=== PATIENT | female | born 1980 | race Caucasian/White ===

== ENCOUNTER 2021-08-03 12:00 | Inpatient (IN) | payer SELFPAY ==
[2021-08-03 12:50] VITALS: BMI 32.8
[2021-08-03] MEDS: nicotine 21 mg Patch 1 PATCH TRANSDERMA (13:07)
[2021-08-03 13:52] VITALS: BP 142/87; PULSE 68; RESP 17; TEMP 36.3; O2SAT 94
[2021-08-03 22:00] VITALS: BP 142/84; PULSE 86; RESP 18; O2SAT 96
[2021-08-03] MEDS: trazodone 50 mg Tablet PO (22:32)
[2021-08-04 06:00] VITALS: BP 163/105; PULSE 86; RESP 17; O2SAT 95
--- NOTE | 2021-08-04 06:40 | PC.NURSE ---
charge nurse notified of beth/sydnee/james
--- NOTE | 2021-08-04 10:41 | NPU.GN ---
[facility] Topic:Depression/ Anxiety [place] General Mood of Group: Francesca did not attend group this morning she wanted to sleep.
--- NOTE | 2021-08-04 12:19 | P.NPUHP_ITS ---
Providers/Chief Complaint Admitting Physician: Cecil Coto MD HPI NPU History of Present Illness Francesca Bravo is a 40 year old female who was transferred from a hospital near [place] with the following report: 40-year-old female presents with a wound on her right hip. She said the triage personnel that she was trying to hurt herself. Apparently she came from a psychiatric outpatient center where she could not be seen until next week so she came to the ER. She was very evasive with me stating that she really was not going to hurt herself but she was going to go to her [facility] to be by herself all weekend and make no eye contact was very nervous and fidgety. She denies problems with the law. She denies drugs. She states that this wound on her right thigh which appears to be a scar from a burn that she had 2 or 3 weeks was not self-inflicted and that she felt like I would feel she was trying to hurt herself. She delayed seeking care for this. She is a smoker half pack per day denies alcohol drugs and has not been COVID vaccinated. She denies any previous psychiatric care and has no known allergies. Nurse wrote that she had been at [facility] and was planning to winterize it. Her son was supposed to be coming. The nurse had spoken with the son who stated that his mother had been acting different lately and that she was looking into placement into a drug/alcohol rehab. When asked how long she had been using he stated that he was not sure how long it had been and that she had been clean for a week and relapsed over the last few days. He stated that she had current stressors including her father's diagnosis with Alzheimer's and her mother taking over the majority of care for him. She was supposed to help her mother but knows that she needs to get help first. She had tried to check into [facility] earlier that day but told that she needed to go to the emergency room first. She was admitted to the neuropsychiatry unit for definitive treatment of these issues. She has been complaining that she has not been seen by the psychiatrist. I talked to her at 1230 and she was fairly upset because she did not feel that she needed to be here. She was a little difficult to interview because she would breakdown frequently and cry because she said that she did not need to be here and would not get any better here. She said that she went to the emergency room because of the sore on her hip. She said that she had not been taking care of it properly as she should have. She had tried to get into an outpatient treatment program and was told that she could not be taken immediately and if she had urgent issues she needed to go to the emergency room and tell them that she was thinking about hurting herself. She told them in the emergency room that she was thinking about hurting herself but did not say that she was thinking about killing herself. Her son said that she had been acting differently lately and had been looking into a drug/rehab program. He said that she has been clean for a week but then had a relapse in the last few days. The patient denies any prior psychiatric treatment other than she tried Zoloft 1 time but it made her more anxious and jittery. She did not want to try different antidepressant. She says that she just needs therapy. She denies any prior substance abuse including alcohol methamphetamine and marijuana since she was 13 years old. She says that she has been sleeping and eating well. She generally sleeps off cycle from 12 AM to 12 PM. 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 She feels that she gets adequate sleep. She is stressed out because her father has Alzheimer's disease and her mother is trying to take care of him. They are moving into an assisted living facility in [place]. The patient lives in [place]. She has been here trying to get the [employer] ready to sell. She has difficulty selling it because that is where her grandmother . Meds NPU Home Medications Medication Instructions Recorded Confirmed Last Taken Type No Known Home Medications 08/04/21 08/04/21 Unknown History Allergies Allergy/AdvReac Type Severity Reaction Status Date / Time No Known Allergies Allergy Verified 08/04/21 04:17 Mental Status Exam MSE Comments: This is an overweight 40-year-old female who appears about the stated age. She is dressed in hospital scrubs and is in no acute distress. psychomotor activity is normal to mildly elevated. Speech is at a regular rate and rhythm, normal volume, good articulation, not pressured. Alert, oriented X3 Attention and concentration appears to be normal. Memory is intact Mood is depressed. Affect is moderately dysphoric. She broke into tears several times. Thought process is logical and goal-directed. Thought content: Denies auditory and visual hallucinations. No delusions or paranoia are noted. No current suicidal ideation, and no homicidal ideation. Fund of knowledge is within normal limits. Insight and judgment appear to be fair. Impulse control is fair. Vitals/I&O/Wt Last Vital Signs Temp 97.4 F L 08/03/21 13:52 Pulse 86 08/04/21 06:00 Resp 17 08/04/21 06:00 BP 163/105 08/04/21 06:00 Pulse Ox 95 08/04/21 06:00 Weight last 48 hrs Weight 83.915 kg A&P Assessment and plan (1) Depression: Status: Acute Qualifiers: Active/Remission status: currently active Depression Type: major depressive disorder Major depression episode severity: moderate Major depression recurrence: recurrent Qualified Code(s): F33.1 - Major depressive disorder, recurrent, moderate (2) Suicidal ideation: Status: Acute Additional A&P Information Is a 40-year-old female who went to the emergency room for a wound on her hip but told them that she was also thinking about hurting herself. She denies prior psychiatric treatment. Plan: 1. Continue outpatient medications. she declined an antidepressant. 2. Continue every 15 minute checks for safety. 3. Encourage individual, group and milieu therapies. 4. Encourage sober living treatment after discharge at the highest level of care to which she is willing to commit. 5. We will monitor for safety for herself in the community prior to discharge. Involuntary Hold Information 96 Hour Hold: 96 Hour Involuntary Admission: Yes 96 Hour Hold Ending Date: 08/07/21 96 Hour Hold Ending Time: 00:01 Attestations NPU Medical Necessity Statement*: Inpatient hospitalization is medically necessary and the clinically appropriate intervention at this time. We will initiate medications and make changes as indicated. She will be in the hospital for over 2 midnights. Likely length of stay 4-6 days Coding Level of Care Code Acute Pocket Marker for Vivek Mendoza Diagnoses Depression F33.1 Active/Remission status: currently active Depression Type: major depressive disorder Major depression episode severity: moderate Major depression recurrence: recurrent Suicidal ideation R45.855
[2021-08-04] MEDS: nicotine 21 mg Patch 1 PATCH TRANSDERMA (12:56)
[2021-08-04] MEDS: hyDROXYzine 25 mg Capsule 50 MG PO ×2 (13:30→23:13)
[2021-08-04] MEDS: lisinopril 10 mg Tablet PO (13:31)
[2021-08-04 14:00] VITALS: BP 154/94; PULSE 86; RESP 17; TEMP 37; O2SAT 98
[2021-08-04 22:00] VITALS: BP 129/79; PULSE 86; RESP 16; TEMP 36.7; O2SAT 95
[2021-08-05 06:00] VITALS: BP 129/92; PULSE 105; RESP 15; O2SAT 98
[2021-08-05] MEDS: lisinopril 10 mg Tablet PO ×2 (09:19→19:41)
[2021-08-05] MEDS: nicotine 21 mg Patch 1 PATCH TRANSDERMA (09:19)
--- NOTE | 2021-08-05 11:03 | NPU.GN ---
[facility] Topic:Group Topic:Ashley Word Search General Mood of Group: Francesca did attend and participate in group today. She was social and hygiene was ok.
[2021-08-05] MEDS: eucerin cream 113 gm Jar 1 APPLIC TOPICAL (13:21)
--- NOTE | 2021-08-05 13:57 | W.PM.NPUPNS ---
Subjective NPU Subjective: Interval history: He apologized for her behavior yesterday. She said that she did want to get help. She does believe that she has anxiety and depression. She thinks that she took Zoloft in the past and it caused her to be jittery. She is going to find out from her pharmacy which medication that was. She is also going to call her daughter who sees Dr. Anne in [place] and see if she has been on an antidepressant that has helped her. She says that her daughter had problems with Xanax in the past. She thinks that her mother has been diagnosed with depression and bipolar 2 disorder. We went over the symptoms of anxiety. She does feel that she has thoughts going fast all the time and her brain is constantly multitasking. She has difficulty with concentration. She is irritable. He has difficulty with sleep. She would not want to take a sleeping pill because she sees what they do to people. We talked about the treatment of anxiety and depression. Mental Status Exam MSE Comments: This is an overweight 40-year-old female who appears about the stated age. She is dressed in hospital scrubs and is in no acute distress. psychomotor activity is normal. Speech is at a regular rate and rhythm, normal volume, good articulation, not pressured. Alert, oriented X3 Attention and concentration appears to be normal. Memory is intact Mood is depressed. Affect is only dysphoric. Thought process is logical and goal-directed. Thought content: Denies auditory and visual hallucinations. No delusions or paranoia are noted. No current suicidal ideation, and no homicidal ideation. Fund of knowledge is within normal limits. Insight and judgment appear to be good. Impulse control is fair. Cognition: Patient Appearance: Appropriate Patient Orientation (long list): Person, Place and Time Comprehension Ability: No Impairment Hallucination Type: None Thought Process: Circumstantial Affect: Affect Description: [place] and Calm Behavior: Patient Behavior: Cooperative and Negative Speech Pattern: Appropriate and Clear Vitals/I&O/Wt Last Vital Signs Temp 98.1 F 08/04/21 22:00 Pulse 105 H 08/05/21 06:00 Resp 15 08/05/21 06:00 BP 129/92 08/05/21 06:00 Pulse Ox 98 08/05/21 06:00 A&P Assessment and plan (1) Depression: Status: Acute Qualifiers: Depression Type: major depressive disorder Major depression recurrence: recurrent Active/Remission status: currently active Major depression episode severity: moderate Qualified Code(s): F33.1 - Major depressive disorder, recurrent, moderate (2) Suicidal ideation: Status: Acute Additional A&P Information Is a 40-year-old female who went to the emergency room for a wound on her hip but told them that she was also thinking about hurting herself. She denies prior psychiatric treatment. Plan: 1. Continue outpatient medications. She will make some contacts and see if she has a recommendation for an antidepressant 2. Continue every 15 minute checks for safety. 3. Encourage individual, group and milieu therapies. 4. Encourage sober living treatment after discharge at the highest level of care to which she is willing to commit. 5. We will monitor for safety for herself in the community prior to discharge. Involuntary Hold Information 96 Hour Hold: 96 Hour Involuntary Admission: Yes 96 Hour Hold Ending Date: 08/07/21 96 Hour Hold Ending Time: 00:01 Attestations NPU Medical Necessity Statement*: Inpatient hospitalization is medically necessary and the clinically appropriate intervention at this time. We will initiate medications and make changes as indicated. Coding Level of Care Code Acute Tilesetter for Vivek Mendoza Diagnoses Depression F33.1 Depression Type: major depressive disorder Major depression recurrence: recurrent Active/Remission status: currently active Major depression episode severity: moderate Suicidal ideation R45.859
[2021-08-05 14:00] VITALS: BP 147/88; PULSE 68; RESP 16; TEMP 36.9; O2SAT 98
[2021-08-05] MEDS: nicotine 2 mg Gum BUCCAL ×3 (14:46→19:17)
[2021-08-05] MEDS: acetaminophen 325 mg Tablet 650 MG PO (18:51)
[2021-08-05] MEDS: hyDROXYzine 25 mg Capsule 50 MG PO (19:41)
[2021-08-05 20:45] VITALS: BP 158/100; PULSE 88; RESP 18; TEMP 36.5; O2SAT 98
[2021-08-06 06:00] VITALS: BP 126/81; PULSE 85; RESP 16; TEMP 36.7; O2SAT 97
[2021-08-06] MEDS: lisinopril 10 mg Tablet PO (09:46)
[2021-08-06] MEDS: nicotine 2 mg Gum BUCCAL (09:46)
[2021-08-06] MEDS: sertraline 50 mg Tablet PO (09:46)
--- NOTE | 2021-08-06 10:30 | NPU.GN ---
[facility] Topic:Group Topic:Crisis Plan, Triggers, Coping Mechanisms. General Mood of Group: Francesca did not attend group today. She was feeling sick this morning.
[2021-08-06] MEDS: acetaminophen 325 mg Tablet 650 MG PO (10:51)
[2021-08-06] MEDS: OLANZapine 5 mg ODT PO ×2 (11:20→20:52)
[2021-08-06] MEDS: hyDROXYzine 25 mg Capsule 50 MG PO ×2 (11:20→20:52)
--- NOTE | 2021-08-06 13:49 | P.NPUPN_ITS ---
Subjective NPU Subjective: Interval history: She is having a difficult day today. She attributes that to having her period starting. She usually has 1 or 2 bad days. She can deal with it better at home. She had some scrubs with blood on them that were in the corner and she has to have housekeeping cleaning up the medicine she cannot do it herself. She took some Zyprexa and hydroxyzine about 11 AM and is sedated now from that. Mental Status Exam MSE Comments: This is an overweight 40-year-old female who appears about the stated age. She is dressed in hospital scrubs and is in no acute distress. psychomotor activity is normal. Speech is at a regular rate and rhythm, normal volume, good articulation, not pressured. Alert, oriented X3 Attention and concentration appears to be normal. Memory is intact Mood is depressed. Affect is dysphoric. Thought process is logical and goal-directed. Thought content: Denies auditory and visual hallucinations. No delusions or paranoia are noted. No current suicidal ideation, and no homicidal ideation. Fund of knowledge is within normal limits. Insight and judgment appear to be good. Impulse control is fair. Cognition: Patient Appearance: Appropriate Patient Orientation (long list): Person, Place, Time and Name Comprehension Ability: No Impairment Hallucination Type: None Delusion Description: Not Present Thought Process: Appropriate Affect: Affect Description: Anxious Behavior: Patient Behavior: Appropriate Speech Pattern: Appropriate Vitals/I&O/Wt Last Vital Signs Temp 98.0 F 08/06/21 06:00 Pulse 85 08/06/21 06:00 Resp 16 08/06/21 06:00 BP 126/81 08/06/21 06:00 Pulse Ox 97 08/06/21 06:00 A&P Assessment and plan (1) Depression: Status: Acute Qualifiers: Depression Type: major depressive disorder Major depression recurrence: recurrent Active/Remission status: currently active Major depression episode severity: moderate Qualified Code(s): F33.1 - Major depressive disorder, recurrent, moderate (2) Suicidal ideation: Status: Acute Additional A&P Information Is a 40-year-old female who went to the emergency room for a wound on her hip but told them that she was also thinking about hurting herself. She den ies prior psychiatric treatment. Plan: 1. Continue outpatient medications. She decided to try Zoloft and took her first dose of 50 mg this morning. She does not think that she is having any side effects from it. 2. Continue every 15 minute checks for safety. 3. Encourage individual, group and milieu therapies. 4. Encourage sober living treatment after discharge at the highest level of care to which she is willing to commit. 5. We will monitor for safety for herself in the community prior to discharge. Involuntary Hold Information 96 Hour Hold: 96 Hour Involuntary Admission: Yes 96 Hour Hold Ending Date: 08/07/21 96 Hour Hold Ending Time: 00:01 Attestations NPU Medical Necessity Statement*: Inpatient hospitalization is medically necessary and the clinically appropriate intervention at this time. We will initiate medications and make changes as indicated. Coding Level of Care Code Acute Automotive Service Director for Vivek Mendoza Diagnoses Depression F33.1 Depression Type: major depressive disorder Major depression recurrence: recurrent Active/Remission status: currently active Major depression episode severity: moderate Suicidal ideation R45.880
[2021-08-06 14:00] VITALS: BP 111/71; PULSE 61; RESP 18; TEMP 36.7; O2SAT 97
[2021-08-06] MEDS: trazodone 50 mg Tablet PO (20:52)
--- NOTE | 2021-08-06 20:55 | PC.NURSE ---
PT anxious and requesting medication for anxiety and for sleep aid. Vistaril 50 mg, Zydis 5 mg and Trazadone 50 mg administered without complication.
[2021-08-06 22:00] VITALS: RESP 16
[2021-08-07 06:00] VITALS: RESP 16
--- NOTE | 2021-08-07 07:42 | P.NPUDS_ITS ---
Diagnoses at Discharge Discharge Diagnosis (1) Depression: Status: Acute Qualifiers: Depression Type: major depressive disorder Major depression recurrence: recurrent Active/Remission status: currently active Major depression episode severity: moderate Qualified Code(s): F33.1 - Major depressive disorder, recurrent, moderate (2) Suicidal ideation: Status: Acute Reason for Visit Reason for Visit: Brief History: [facility], [place] [id number] & Physical ReportSigned Providers/Chief Complaint Admitting Physician: Cecil Coto MD [facility] NPU History of Present Illness Francesca Bravo is a 40 year old female who was transferred from a hospital near [place] with the following report: 40-year-old female presents with a wound on her right hip. She said the triage personnel that she was trying to hurt herself. Apparently she came from a psychiatric outpatient center where she could not be seen until next week so she came to the ER. She was very evasive with me stating that she really was not going to hurt herself but she was going to go to [facility] to be by herself all weekend and make no eye contact was very nervous and fidgety. She denies problems with the law. She denies drugs. She states that this wound on her right thigh which appears to be a scar from a burn that she had 2 or 3 weeks was not self-inflicted and that she felt like I would feel she was trying to hurt herself. She delayed seeking care for this. She is a smoker half pack per day denies alcohol drugs and has not been COVID vaccinated. She denies any previous psychiatric care and has no known allergies. Nurse wrote that she had been at the [facility] of her parents and was planning to winterize it. Her son was supposed to be coming. The nurse had spoken with the son who stated that his mother had been acting different lately and that she was looking into placement into a drug/alcohol rehab. When asked how long she had been using he stated that he was not sure how long it had been and that she had been clean for a week and relapsed over the last few days. He stated that she had current stressors including her father's diagnosis with Alzheimer's and her mother taking over the majority of care for him. She was supposed to help her mother but knows that she needs to get help first. She had tried to check into [place] earlier that day but told that she needed to go to the emergency room first. She was admitted to the neuropsychiatry unit for definitive treatment of these issues. She has been complaining that she has not been seen by the psychiatrist. I talked to her at 1230 and she was fairly upset because she did not feel that she needed to be here. She was a little difficult to interview because she would breakdown frequently and cry because she said that she did not need to be here and would not get any better here. She said that she went to the emergency room because of the sore on her hip. She said that she had not been taking care of it properly as she should have. She had tried to get into an outpatient treatment program and was told that she could not be taken immediately and if she had urgent issues she needed to go to the emergency room and tell them that she was thinking about hurting herself. She told them in the emergency room that she was thinking about hurting herself but did not say that she was thinking about killing herself. Her son said that she had been acting differently lately and had been looking into a drug/rehab program. He said that she has been clean for a week but then had a relapse in the last few days. The patient denies any prior psychiatric treatment other than she tried Zoloft 1 time but it made her more anxious and jittery. She did not want to try different antidepressant. She says that she just needs therapy. She denies any prior substance abuse including alcohol methamphetamine and marijuana since she was 13 years old. She says that she has been sleeping and eating well. She generally sleeps off cycle from 12 AM to 12 PM. 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 She feels that she gets adequate sleep. She is stressed out because her father has Alzheimer's disease and her mother is trying to take care of him. They are moving into an assisted living facility in [place]. The patient lives in [place]. She has been here trying to get the [employer] ready to sell. She has difficulty selling it because that is where her grandmother . Hospital Course Hospital Course She slowly acclimated to the individual, group and milieu therapies provided. SHe was started on Zoloft. She tolerated these doses and showed steady improvement during her stay. She was able to contract for safety outside hospital prior to discharge. During the hospitalization, patient had routine laboratory studies which were within normal limits except for few outliers. Additionally there was a general medical evaluation which was also within normal limits and revealed no new acute processes. Discharge Summary: At the time of discharge, lethality was denied. Mood and anxiety were well managed. Patient endorsed a plan to follow-up with the aftercare recommendations of the treatment team. Patient was evaluated and deemed to be absent credible lethality, and had achieved the maximum benefit from an inpatient hospitalization, so was discharged. Involuntary Hold Information 96 Hour Hold: 96 Hour Involuntary Admission: Yes 96 Hour Hold Ending Date: 08/07/21 96 Hour Hold Ending Time: 00:01 Mental Status Exam MSE Comments: This is an overweight 40-year-old female who appears about the stated age. She is dressed in hospital scrubs and is in no acute distress. psychomotor activity is normal. Speech is at a regular rate and rhythm, normal volume, good articulation, not pressured. Alert, oriented X3 Attention and concentration appears to be normal. Memory is intact Mood is depressed. Affect is dysphoric. Thought process is logical and goal-directed. Thought content: Denies auditory and visual hallucinations. No delusions or paranoia are noted. No current suicidal ideation, and no homicidal ideation. Fund of knowledge is within normal limits. Insight and judgment appear to be good. Impulse control is fair. Cognition: Patient Appearance: Appropriate Patient Orientation (long list): Person, Place, Time and Name Comprehension Ability: No Impairment Hallucination Type: None Delusion Description: Not Present Thought Process: Appropriate Affect: Affect Description: Appropriate and Anxious Behavior: Patient Behavior: Cooperative Speech Pattern: Appropriate Discharge Data Vitals: Last Vital Signs Temp 98.0 F 08/06/21 14:00 Pulse 61 08/06/21 14:00 Resp 16 08/07/21 06:00 BP 111/71 08/06/21 14:00 Pulse Ox 97 08/06/21 14:00 Discharge Plan Discharge Patient Disposition: Home Condition: Stable Prescriptions: New sertraline 50 mg Tablet 50 mg PO DAILY 30 Days Qty: 30 RF: 0 No Action No Known Home Medications RF: 0 Discharge Orders: Discharge Order (Routine); Ordered 08/07/21 Ordered By: Cecil Coto Referrals: [facility] [Other] - 4-7 days (Walk-in for initial visit Mon-Fri 8am-4pm. Bring photo ID, proof of residency, medicaiton list, and SSN Card.) Discharge Diet: Regular Discharge Activity: Resume usual activity Patient Instructions: Opioid Safety Discharge Attestations NPU Time Spent in Discharge Care*: less than 30 min Specific Discharge Activities: Specific discharge activities: educating patient, discussing with immigration case manager/social workers/dc planners, documenting/other paperwork and evaluating patient/reviewing data Coding Level of Care Code Acute Chg DC note Diagnoses Depression F33.1 Depression Type: major depressive disorder Major depression recurrence: recurrent Active/Remission status: currently active Major depression episode severity: moderate Suicidal ideation R45.857
[2021-08-07] MEDS: sertraline 50 mg Tablet PO (09:19)
[2021-08-07] MEDS: lisinopril 10 mg Tablet PO (09:19)
[2021-08-07 10:15] VITALS: BP 111/71; PULSE 61; RESP 16; TEMP 36.7; O2SAT 97
[2021-08-07] MEDS: nicotine 2 mg Gum BUCCAL (10:41)
== END 2021-08-07 12:23 | disposition home or self-care (01) | DRG 885 ==
PROVIDERS: Admitting Provider Psychiatry & Neurology Psychiatry; Visit Provider Psychiatry & Neurology Psychiatry
DX: F33.1 Major depressive disorder, recurrent, moderate (principal); R45.851 Suicidal ideations; F17.210 Nicotine dependence, cigarettes, uncomplicated; F41.9 Anxiety disorder, unspecified; Z81.8 Family history of other mental and behavioral disorders
CPT/HCPCS: 97150; 97165

== ENCOUNTER 2024-02-05 10:05 | Inpatient (IN) | payer SELFPAY ==
[2024-02-05 10:15] VITALS: BP 166/118; PULSE 99; RESP 14; TEMP 37.1; O2SAT 99
--- NOTE | 2024-02-05 10:42 | XRR_ITS ---
PROCEDURE INFORMATION: Exam: XR Chest Exam date and time: 02/05/2024 10:58 AM Age: 43 years old Clinical indication: Other: Psych clearance TECHNIQUE: Imaging protocol: Radiologic exam of the chest. Views: 1 view. COMPARISON: No relevant prior studies available. FINDINGS: Lungs: Unremarkable. No consolidation. Pleural spaces: Unremarkable. No pleural effusion. No pneumothorax. Heart/Mediastinum: Unremarkable. No cardiomegaly. Bones/joints: Unremarkable. XR/XR chest 1V portable 28201 IMPRESSION: No acute findings.
[2024-02-05 10:57] LABS: Basophils % 0.5 %; Eosinophils # 0.2 10^3/uL (0.0-0.8); Eosinophils % 2.2 %; Hematocrit 35.5 % (36-47); Lymphocytes # 1.8 10^3/uL (0.8-4.8); Lymphocytes % 20.2 %; Mean Corpuscular HGB Conc 30.1 g/dL (30-55); Mean Corpuscular Hemoglobin 22.3 pg (27-33); Mean Corpuscular Volume 74.1 fl (85-98); Mean Platelet Volume 9.2 fL (7.4-10.4); Monocytes # 0.8 10^3/uL (0.2-0.9); Monocytes % 8.5 %; Nucleated Red Blood Cells % 0 %; Platelet Count 355 10^3/cmm (157-399); Red Blood Count 4.79 10^6/uL (3.85-5.65); Red Cell Distribution Width 16.4 % (12.1-15.1); White Blood Count 8.81 10^3/uL (3.29-11.43)
[2024-02-05 11:18] LABS: Alanine Aminotransferase 11 U/L (0-33); Albumin Level 4.1 g/dL (3.5-5.2); Alkaline Phosphatase 69 U/L (35-105); Anion Gap 12.9 (5-19); Aspartate Amino Transferase 20 U/L (0-32); Blood Urea Nitrogen 17 mg/dL (6-20); Carbon Dioxide 26 mmol/L (22-29); Chloride 103 mmol/L (98-107); Globulin 3.1 g/dL (1.3-4.6); Glomerular Filtration Rate 90.9 mL/min (90-130); Glucose 107 mg/dL (65-115); Osmolality Calculated 288 mOsm/kg (285-295); Potassium 3.9 mmol/L (3.5-5.1); Sodium 138 mmol/L (136-145); Total Bilirubin 0.2 mg/dL (0.15-1.2); Total Protein 7.2 g/dL (6.6-8.7)
[2024-02-05 11:19] LABS: Acetaminophen < 5.0 ug/mL (10-30); Alcohol Level < 10 mg/dL (0-10); Salicylate < 0.3 mg/dL (3-10)
[2024-02-05 12:09] LABS: Add Urine Microscopic? NO; Charge for UA Resulting for Rev; HCG Qualitative Urine. Negative (Negative)
[2024-02-05 12:10] LABS: Bilirubin Urine Neg (Negative); Blood Urine Neg (Negative); Glucose Urine UA Norm (Normal); Ketones Urine Negative (Negative); Leukocyte Esterase Urine Negative (Negative); Nitrate Urine Negative (Negative); Protein Urine Neg (Negative); Specific Gravity, Urine 1.015 (1.005-1.030); Urine Appearance Clear (CLEAR); Urine Color Yellow (Yellow); Urobilinogen Urine Norm (Negative); pH Urine 6.5 (5-7)
--- NOTE | 2024-02-05 12:17 | ED.C_ITS ---
HPI - Psych 2 General: Chief Complaint: Psychiatric Symptoms Stated Complaint: MHE Time Seen by Provider: 02/05/24 10:25 Source: patient Mode of arrival: ambulatory Limitations: no limitations History of Present Illness: Patient arrives voluntary for severe depression and suicidal ideation without active intent at the moment. Patient reports has been off her Zoloft for a bit. She tried restarting it but made her feel very nauseous. She lives like [place] hours away and came for voluntary admission as she has been admitted here before and tolerated it well. She has had several family stressors including the of her father take care of her sick mother, issues with children as well. Patient denies any other symptoms or illnesses at the moment. Review of Systems 2 General: Reports: 10 or more systems reviewed and unremarkable except in HPI and below Physical Exam 2 Const: COMMON NORMALS: no acute distress, average body habitus, patient oriented x3, healthy appearing, alert and well nourished GENERAL APPEARANCE: well kempt and well developed HENMT: COMMON NORMALS: normocephalic, atraumatic, external ears normal and moist oral mucous membranes HEAD & SCALP: normocephalic and atraumatic E XTERNAL EAR: Yes external ears normal Eye: COMMON NORMALS: Equal, round and reactive pupils present, EOMs intact bilaterally and conjunctivae normal CONJUNCTIVA: Yes conjunctivae normal P UPIL: Yes Equal, round and reactive pupils present Neck/C-Spine: COMMON NORMALS: full ROM, no lymphadenopathy and supple Chest: CHEST: Yes Symmetrical chest wall rise and No Surgical scars present (Chest) Resp: COMMON NORMALS: normal respiratory effort, No retractions, No use of accessory muscles and clear to auscultation bilaterally AUSCULTATION: clear to auscultation bilaterally Cardio: COMMON NORMALS: regular rate, regular rhythm, S1 normal heart sound present, S2 normal heart sound present, No gallops present (Cardio), No clicks present (Cardio), No murmurs present (Cardio) and No rub (Cardio) RATE: r egular rate RHYTHM: regular rhythm HEART SOUNDS: S1 normal heart sound present, S2 normal heart sound present and no murmurs PERIPHERAL PULSES: o ther (Radial pulses 2+ and symmetric) GI: COMMON NORMALS: Soft to palpation, non-tender and no masses INSPECTION: No abdominal distension PALPATION: Yes Soft to palpation, No Guarding due to palpation present (GI) and No Rebound tenderness present : COMMON NORMALS: Yes no CVA tenderness BLADDER/KIDNEY EXAM: Yes no CVA tenderness Back/Pelvis: COMMON NORMALS: no CVA tenderness Extremity: COMMON NORMALS: normal to inspection, full ROM, capillary refill normal and no clubbing, cyanosis or edema Neuro: COMMON NORMALS: patient oriented x3 SENSORIUM/ORIENTATION: Yes alert Psych: COMMON NORMALS: mental status grossly normal and cooperative A PPEARANCE: Yes well kempt ATTITUDE: Yes calm ACTIVITY/MOTOR BEHAVIOR: Yes appropriate eye contact SPEECH: Yes rapid MOOD & AFFECT: Yes depressed mood and Yes anxious THOUGHT PROCESS: No disorganized THOUGHT CONTENT: Yes Suicidality present ATTENTION/CONCENTRATION: Yes attention grossly intact MEMORY/COGNITION: Yes memory grossly intact INSIGHT: Fair insight present (Psych) JUDGEMENT: Fair judgement present (Psych) Skin: COMMON NORMALS: no rashes or lesions noted, no wounds, turgor normal and no jaundice GENERAL SKIN EXAM: no rashes or lesions noted and turgor normal Course 2 Reevaluation(s): Reevaluation #1: Labs have all returned. Will page psych. Time: 12:20 Reevaluation #2: I realized there was miscommunication between me and the psychiatrist. It was intended for me to put in admission orders. I have not done so. This was the reason for the prolonged ED stay. Time: 19:00 Consultations: Consultation #1: Spoke with Dr. Barros regarding patient. He reports he will evaluate. Time: 12:20 Vital Signs: Vital signs: Vital Signs Temperature 97.3 F L 02/05/24 20:28 Pulse Rate 87 02/05/24 21:35 Respiratory Rate 18 02/05/24 21:35 Blood Pressure 156/106 02/05/24 21:35 Pulse Oximetry 98 02/05/24 21:35 Oxygen Delivery Me thod Room Air 02/05/24 21:35 MDM - Psych Medical Decision Making Patient with episode of major depressive disorder and suicidal ideation with questionable intent. Patient is here voluntarily, drove a long distance to be here as she had a good experience here years ago. Patient is willing to go for inpatient stay. Talk to the psychiatrist and he is okay with it. Differential Diagnosis Likely suicidal ideation and depression Medical Records I reviewed the patient's medical records. Lab Data I reviewed the patient's lab results. 02/05/24 10:53 02/05/24 10:53 Radiology Impressions Chest X-Ray 02/05/24 10:42 IMPRESSION: No acute findings. Laboratory Results WBC 8.81 10^3/uL (3.29-11.43) 02/05/24 10:53 RBC 4.79 10^6/uL (3.85-5.65) 02/05/24 10:53 Hgb 10.70 g/dL (11.27-16.99) L 02/05/24 10:53 Hct 35.5 % (36-47) L 02/05/24 10:53 MCV 74.1 fl (85-98) L 02/05/24 10:53 MCH 22.3 pg (27-33) L 02/05/24 10:53 MCHC 30.1 g/dL (30-55) 02/05/24 10:53 RDW 16.4 % (12.1-15.1) H 02/05/24 10:53 Plt Count 355 10^3/cmm (157-399) 02/05/24 10:53 MPV 9.2 fL (7.4-10.4) 02/05/24 10:53 Neut % (Auto) 68.0 % 02/05/24 10:53 Lymph % (Auto) 20.2 % 02/05/24 10:53 Story % (Auto) 8.5 % 02/05/24 10:53 Eos % (Auto) 2.2 % 02/05/24 10:53 Baso % (Auto) 0.5 % 02/05/24 10:53 Neut # (Auto) 6.00 10^3/uL (1.8-7.7) 02/05/24 10:53 Lymph # (Auto) 1.8 10^3/uL (0.8-4.8) 02/05/24 10:53 Story # (Auto) 0.8 10^3/uL (0.2-0.9) 02/05/24 10:53 Eos # (Auto) 0.2 10^3/uL (0.0-0.8) 02/05/24 10:53 Baso # (Auto) 0.0 10^3/uL (0.0-0.1) 02/05/24 10:53 Nucleated RBC % (auto) 0 % 02/05/24 10:53 Nucleated RBCs # 0.0 /100WBC 02/05/24 10:53 Sodium 138 mmol/L (136-145) 02/05/24 10:53 Potassium 3.9 mmol/L (3.5-5.1) 02/05/24 10:53 Chloride 103 mmol/L (98-107) 02/05/24 10:53 Carbon Dioxide 26 mmol/L (22-29) 02/05/24 10:53 Anion Gap 12.9 (5-19) 02/05/24 10:53 BUN 17 mg/dL (6-20) 02/05/24 10:53 Creatinine 0.7 mg/dL (0.5-0.9) 02/05/24 10:53 GFR Calculation 90.9 mL/min (90-130) 02/05/24 10:53 Glucose 107 mg/dL (65-115) 02/05/24 10:53 Calculated Osmolality 288 mOsm/kg (285-295) 02/05/24 10:53 Calcium 9.0 mg/dL (8.5-10.5) 02/05/24 10:53 Total Bilirubin 0.2 mg/dL (0.15-1.2) 02/05/24 10:53 AST 20 U/L (0-32) 02/05/24 10:53 ALT 11 U/L (0-33) 02/05/24 10:53 Alkaline Phosphatase 69 U/L (35-105) 02/05/24 10:53 Total Protein 7.2 g/dL (6.6-8.7) 02/05/24 10:53 Albumin 4.1 g/dL (3.5-5.2) 02/05/24 10:53 Globulin 3.1 g/dL (1.3-4.6) 02/05/24 10:53 HCG, Qual Negative (Negative) 02/05/24 11:59 Urine Color Yellow (Yellow) 02/05/24 11:59 Urine Appearance Clear (CLEAR) 02/05/24 11:59 Urine pH 6.5 (5-7) 02/05/24 11:59 Ur Specific Bronson 1.015 (1.005-1.030) 02/05/24 11:59 Urine Protein Neg (Negative) 02/05/24 11:59 Urine Glucose (UA) Norm (Normal) 02/05/24 11:59 Urine Ketones Negative (Negative) 02/05/24 11:59 Urine Blood Neg (Negative) 02/05/24 11:59 Urine Nitrate Negative (Negative) 02/05/24 11:59 Urine Bilirubin Neg (Negative) 02/05/24 11:59 Urine Urobilinogen Norm mg/dL (Negative) 02/05/24 11:59 Ur Leukocyte Esterase Negative (Negative) 02/05/24 11:59 Salicylates < 0.3 mg/dL (3-10) L 02/05/24 10:53 Urine Opiates Screen Negative ng/mL (Negative) 02/05/24 11:59 Acetaminophen < 5.0 ug/mL (10-30) L 02/05/24 10:53 Ur Barbiturates Screen Negative ng/mL (Negative) 02/05/24 11:59 Ur Phencyclidine Scrn Negative ng/mL (Negative) 02/05/24 11:59 Ur Amphetamines Screen Positive ng/mL (Negative) H 02/05/24 11:59 U Benzodiazepines Scrn Negative ng/mL (Negative) 02/05/24 11:59 Urine Cocaine Screen Negative ng/mL (Negative) 02/05/24 11:59 U Marijuana (THC) Screen Negative ng/mL (Negative) 02/05/24 11:59 Ethyl Alcohol < 10 mg/dL (0-10) 02/05/24 10:53 All radiology interpretation(s) finalized by discharge ED provider radiology interpretation(s): Initially did an x-ray read by me as unremarkable. Discharge Plan Discharge Patient Disposition: Admitted As Inpatient Admit Provider: Mukesh Barros Clinical Impression: Depression, Suicidal ideation Condition: Stable Coding Level of Care Code ED Track Hoe Operator for Vivek Mendoza
[2024-02-05 12:20] LABS: Amphetamines Screen Urine Positive (Negative); Barbiturates Screen Urine Negative (Negative); Benzodiazepines Screen Urine Negative (Negative); Cocaine Screen Urine Negative (Negative); Opiate Screen Urine Negative (Negative); PCP Screen Urine Negative (Negative); THC Screen Urine Negative (Negative)
[2024-02-05] MEDS: nicotine 21 mg Patch 1 PATCH TRANSDERMA (17:15)
[2024-02-05 19:30] VITALS: PULSE 88; RESP 16; O2SAT 99
[2024-02-05 19:59] VITALS: BP 174/117
[2024-02-05] MEDS: hyDRALAzine 25 mg Tablet PO (20:10)
[2024-02-05 20:28] VITALS: BP 167/118; PULSE 85; RESP 18; TEMP 36.3; O2SAT 100
[2024-02-05 21:35] VITALS: BP 156/106; PULSE 87; RESP 18; O2SAT 98
[2024-02-05] MEDS: hyDROXYzine 25 mg Capsule 50 MG PO (22:36)
[2024-02-06 06:00] VITALS: BP 127/78; PULSE 84; RESP 16; O2SAT 96
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
[2024-02-06 14:00] VITALS: BP 127/77; PULSE 89; RESP 20; TEMP 36.8; O2SAT 98
[2024-02-06] MEDS: nicotine 2 mg Gum BUCCAL (16:35)
[2024-02-06] MEDS: hyDROXYzine 25 mg Capsule 50 MG PO (16:43)
--- NOTE | 2024-02-06 16:44 | PC.NURSE ---
PT REQUESTED NICOTINE PATCH. THIS NURSE EDUCATE PT THAT THE NICOTINE PATCH IS REMOVED AT NIGHT AT 2100 DUE TO ITS POTENTIAL TO CAUSE NIGHTMARES. THIS NURSE ALSO EDUCATED THAT OUR SYSTEM ONLY ALLOWS IT TO BE GIVEN EVERY 24 HOURS SO RECEIVING IT LATE IN TH DAY WOULD CAUSE HER TO NOT BE ELIGIBLE FOR IT FIRST THING IN THE MORNING. PT THEN REQUESTED THE NICOTINE GUM. THIS NURSE THEN OBTAINED AND ADMINISTERED 2MG NICOTINE GUM TO THIS PT. PT CAME BACK AND STATED CAN I HAVE A LOZENGE INSTEAD? AND PULLED THE GUM OUT OF HER MOUTH. THIS NURSE EDUCATED THE PATIENT THAT UNFORTUNATELY SINCE SHE HAS RECEIVED THE NICOTINE GUM IT WILL BE 2 HOURS BEFORE SHE IS ELIGIBLE FOR A NICOTINE LOZENGE. PT THEN SAID WHATEVER, THROW IT AWAY THEN STUCK THE GUM ON THE COUNTER OF THE NURSES STATION AND WALKED BACK TO THE NURSES STATION. THIS NURSE APPLIED GLOVES AND USED A PAPER TOWEL TO REMOVE THE CHEWED NICOTINE GUM FROM THE COUNTER. THEN THIS NURSE USED THE PURPLE TOP WIPES TO CLEANSE THE AREA. WHILE CLEANSING THE AREA THE PT CAME BACK TO THE NURSES STATION AND ASKED WHAT CAN I HAVE TO CALM DOWN? THIS NURSE STATED I WILL TAKE A LOOK AND SEE THIS NURSE FINISHED CLEANING THE COUNTER OFF THEN ASKED THE PT IF SHE WOULD LIKE TO RECEIVE VISTARIL. PT AGREED TO THIS. WHILE ADMINSTERING THIS MEDICATION THIS NURSE ASKED PT TO RATE HER ANXIETY ON A SCALE OF 1-10 WHERE 0 IS NONE AND 10 IS THE WORST POSSIBLE. PT STATES TO THIS NURSE IT DEPENDS ON THE PEOPLE I AM AROUND AND WHEN IM AROUND YOU IT IS A 10/10. THIS NURSE STATED OKAY AND ADMINISTERED THE MEDICATIONS. PT HAS BEEN RESTING IN BED FOR MOST OF THE DAY PRIOR TO THIS INTERACTION.
--- NOTE | 2024-02-06 17:52 | PC.NURSE ---
STAFF PERFORMED RANDOM ROOM CHECK. NO CONTRABAND FOUND IN PT ROOM. PT WAS COOPERATIVE WITH CHECK.
[2024-02-06] MEDS: sertraline 50 mg Tablet PO (20:07)
[2024-02-06] MEDS: trazodone 50 mg Tablet PO (20:08)
[2024-02-06] MEDS: nicotine 4 mg lozenge MUCOUS MEM (20:08)
[2024-02-06 20:36] VITALS: BP 144/91; PULSE 109; RESP 18; O2SAT 98
[2024-02-07 06:00] VITALS: BP 165/85; PULSE 85; RESP 14; O2SAT 97
[2024-02-07] MEDS: nicotine 21 mg Patch 1 PATCH TRANSDERMA (08:34)
[2024-02-07] MEDS: hydroCHLOROthiazide 25 mg Tablet PO (08:34)
[2024-02-07] MEDS: ibuprofen 600 mg Tablet PO ×2 (08:39→18:44)
[2024-02-07] MEDS: hyDROXYzine 25 mg Capsule 50 MG PO ×2 (13:29→20:54)
[2024-02-07 14:00] VITALS: BP 138/78; PULSE 77; RESP 16; O2SAT 97
--- NOTE | 2024-02-07 17:15 | P.NPUPN_ITS ---
Subjective NPU 2 Subjective: Patient presented today reporting that she is feeling a little better probably mostly related to getting some sleep finally. She reports that she is feeling safe here and having an opportunity to address some issues. She reports that she met with the social work team and they are working on some of her psychosocial challenges. She reports she is having no problem with the initiation of the Zoloft and denied any side effects or medications. Mental Status Exam 2 MSE Comments: This is an obese white female in hospital scrubs with limited grooming but appropriate eye contact. No abnormal movements except for mild psychomotor retardation. Cooperative with exam in mild distress. Speech was slightly decreased rate and volume. Mood described as depressed, affect congruent. Thought process organized. Thought content: Patient denied suicidal or homicidal ideation, there were no delusions reported or noted, she denied any auditory or visual hallucinations. The patient appears to be experiencing emotional instability and anger following the of their father. They also expressed frustration and dissatisfaction with their previous psychiatric care. Attention and concentration were intact and memory appeared reliable but none were formally tested. She is alert and oriented x 3. Insight and judgment were fair impulse control limited. Affect: Affect Description: Appropriate and Anxious Behavior: Patient Behavior: Cooperative Speech Pattern: Appropriate Vitals/I&O/Wt Last Vital Signs Temp 98.3 F 02/07/24 22:00 Pulse 88 02/07/24 22:00 Resp 18 02/07/24 22:00 BP 131/78 02/07/24 22:00 Pulse Ox 97 02/07/24 22:00 O2 Del Method Room Air 02/07/24 22:00 Weight last 48 hrs Weight 90.492 kg Data NPU 02/05/24 10:53 02/05/24 10:53 A&P Assessment and plan (1) Suicidal ideation: (2) Major depressive disorder, recurrent: (3) Methamphetamine use disorder, moderate: Plan This is a 43-year-old female who had been seen in the neuropsychiatric unit once before secondary to depression and not being on medications who presents again with depression and family challenges as well as issues with her psychosocial circumstances including her residence open to restarting medications. Plan: 1. Restarted Zoloft 50 mg p.o. daily with a plan to target 100 mg. 2. Continue every 15 minute checks for safety. 3. Encourage individual, group and milieu therapies. 4. Encourage sober living treatment after discharge at the highest level of care to which she is willing to commit. 5. We will monitor for safety for herself in the community prior to discharge. Involuntary Hold Information 2 96 Hour Hold: 96 Hour Involuntary Admission: Yes Attestations NPU 2 Medical Necessity Statement*: Inpatient hospitalization is medically necessary and the clinically appropriate intervention at this time. We will initiate medications and make changes as indicated. Likely length of stay 2-4 days Coding Level of Care Code Acute Code for [facility] Fwd Diagnoses Suicidal ideation R45.851 Major depressive disorder, recurrent F33.9 Methamphetamine use disorder, moderate F15.20
[2024-02-07] MEDS: nicotine 4 mg lozenge MUCOUS MEM (17:53)
[2024-02-07] MEDS: sertraline 50 mg Tablet PO (20:23)
[2024-02-07 22:00] VITALS: BP 131/78; PULSE 88; RESP 18; TEMP 36.8; O2SAT 97
[2024-02-08 06:00] VITALS: BP 166/83; PULSE 75; RESP 16; O2SAT 96
[2024-02-08] MEDS: ibuprofen 600 mg Tablet PO ×2 (08:07→16:09)
[2024-02-08] MEDS: hydroCHLOROthiazide 25 mg Tablet PO (08:07)
[2024-02-08] MEDS: nicotine 4 mg lozenge MUCOUS MEM ×3 (08:07→16:56)
--- NOTE | 2024-02-08 09:33 | PC.NURSE ---
During morning assessment, patient stated that she is not good because tooth pain. Patient denies SI, HI, AVH. Patient somewhat irritable during assessment, but cooperative.
[2024-02-08 13:16] VITALS: BP 145/88; PULSE 83; RESP 16; TEMP 36.8; O2SAT 97
--- NOTE | 2024-02-08 16:28 | P.NPUPN_ITS ---
Subjective NPU 2 Subjective: Patient presented today reporting that she is doing okay. She reports feeling optimistic about the chance for things to improve and reports that she is unsure why there was a positive methamphetamine finding in the drug screen. We discussed that it was a screen and we were just trying to ensure that there was not an issue that needs to be addressed. She reports having some challenges with the sleep medicines making her overly groggy and she denied any side effects to the medications otherwise. Mental Status Exam 2 MSE Comments: This is an obese white female in hospital scrubs with limited grooming but appropriate eye contact. No abnormal movements except for mild psychomotor retardation. Cooperative with exam in mild distress. Speech was slightly decreased rate and volume. Mood described as a little better, affect congruent. Thought process organized. Thought content: Patient denied suicidal or homicidal ideation, there were no delusions reported or noted, she denied any auditory or visual hallucinations. The patient appears to be experiencing emotional instability and anger following the of their father. They also expressed frustration and dissatisfaction with their previous psychiatric care. Attention and concentration were intact and memory appeared reliable but none were formally tested. She is alert and oriented x 3. Insight and judgment were fair impulse control limited. Affect: Affect Description: Appropriate and Anxious Behavior: Patient Behavior: Cooperative Speech Pattern: Appropriate Vitals/I&O/Wt Last Vital Signs Temp 98.3 F 02/08/24 13:16 Pulse 83 02/08/24 13:16 Resp 16 02/08/24 13:16 BP 145/88 02/08/24 13:16 Pulse Ox 97 02/08/24 13:16 O2 Del Method Room Air 02/08/24 13:16 Data NPU 02/05/24 10:53 02/05/24 10:53 A&P Assessment and plan (1) Suicidal ideation: (2) Major depressive disorder, recurrent: (3) Methamphetamine use disorder, moderate: Plan This is a 43-year-old female who had been seen in the neuropsychiatric unit once before secondary to depression and not being on medications who presents again with depression and family challenges as well as issues with her psychosocial circumstances including her residence open to restarting medications. Plan: 1. Restarted Zoloft 50 mg p.o. daily with a plan to target 100 mg. 2. Continue every 15 minute checks for safety. 3. Encourage individual, group and milieu therapies. 4. Encourage sober living treatment after discharge at the highest level of care to which she is willing to commit. 5. We will monitor for safety for herself in the community prior to discharge. Involuntary Hold Information 2 96 Hour Hold: 96 Hour Involuntary Admission: Yes Attestations NPU 2 Medical Necessity Statement*: Inpatient hospitalization is medically necessary and the clinically appropriate intervention at this time. We will initiate medications and make changes as indicated. Likely length of stay 1-3 days Coding Level of Care Code Acute Code for [facility] Fwd Diagnoses Suicidal ideation R45.851 Major depressive disorder, recurrent F33.9 Methamphetamine use disorder, moderate F15.20
[2024-02-08 19:42] VITALS: BP 148/89; PULSE 88; RESP 19; TEMP 36.9; O2SAT 98
[2024-02-08] MEDS: sertraline 50 mg Tablet PO (20:47)
[2024-02-08] MEDS: trazodone 50 mg Tablet PO ×2 (20:47→22:05)
[2024-02-09 06:00] VITALS: BP 169/100; PULSE 92; RESP 18; TEMP 37; O2SAT 95
--- NOTE | 2024-02-09 09:34 | PC.NURSE ---
IN BED RESTING AROUSES TO VOICE. PT STATES I DID NOT SLEEP WELL BECAUSE MY TOOTH BEEN HURTING ALL NIGHT AND I ASKED FOR ANTIBIOTICS TWO DAYS AGO AND NEVER GOT THEM. PT STATES SHE IS HAVING TOOTH PAIN FROM AN ABSCESSED TOOTH. RATES PAIN 4/10, RN WILL GIVE IBUPROFEN SOON PT GETS UP TO TAKE MEDICATIONS. PT HAS BEEN ENCOURAGED TO COME AND TAKE MEDICATIONS SEVERAL TIMES BUT HAS NOT GOTTEN UP TO TAKE MEDICATIONS OF YET. RATES ANXITY 2/10 AND DEPRESSION 0/10. PT IS OBSERVED TO HAVE A FLAT AFFECT AND WITHDRAWS TO ROOM. DENIES SI/HI AND AVH AT THIS TIME. PT WAS INFORMED RN WOULD SPEAK TO DR. PRAKASH AND SEE IF HE CAN GIVE ORDER FOR ANTIBIOTIC. PT AGREEABLE. ALL QUESTIONS ANSWERED AND SUPPORT VOICED. PT REMAINS IN BED RESTING WITH EYES CLOSED WITH NO DISTRESS NOTED.
[2024-02-09] MEDS: ibuprofen 600 mg Tablet PO (09:42)
[2024-02-09] MEDS: hydroCHLOROthiazide 25 mg Tablet PO (09:42)
--- NOTE | 2024-02-09 11:31 | PC.NURSE ---
NEW ORDERS RECEIVED TO START KEFLEX 500 MG PO QID TIMES 7 DAYS DUE TO PT COMPLAINING OF TOOTH ACHE/ABSCESS. PT EDUCATED ON NEW ORDERS. ALL QUESTIONS ANSWERED AND SUPPORT VOICED.
[2024-02-09] MEDS: cephALEXin 500 mg Capsule PO ×3 (12:21→21:04)
[2024-02-09] MEDS: nicotine 4 mg lozenge MUCOUS MEM ×2 (12:57→16:02)
[2024-02-09 14:00] VITALS: BP 129/84; PULSE 89; RESP 16; TEMP 36.6; O2SAT 95
--- NOTE | 2024-02-09 15:00 | P.NPUPN_ITS ---
Subjective NPU 2 Subjective: Patient presents today reporting that she is doing okay but feeling distressed about the fact that there had not been in communication at this point with the court and she has concerns that a warrant may have been issued given that she missed an appointment the Wednesday after she arrived. She is working with the social work team to identify that that communication has occurred and hoping to have an understanding of the situation. She reports that the medication is not seeming to be significant at this time and we discussed the risk benefits and alternatives of increasing it to 100 mg of the Zoloft and she understood and agreed to proceed as is documented in this note. She denied any side effects of the medication. Mental Status Exam 2 MSE Comments: This is an obese white female in hospital scrubs with limited grooming but appropriate eye contact. No abnormal movements except for mild psychomotor retardation. Cooperative with exam in mild distress. Speech was slightly decreased rate and volume. Mood described as a little better, affect congruent. Thought process organized. Thought content: Patient denied suicidal or homicidal ideation, there were no delusions reported or noted, she denied any auditory or visual hallucinations. The patient appears to be experiencing emotional instability and anger following the of their father. They also expressed frustration and dissatisfaction with their previous psychiatric care. Attention and concentration were intact and memory appeared reliable but none were formally tested. She is alert and oriented x 3. Insight and judgment were fair impulse control limited. Affect: Affect Description: Appropriate and Anxious Behavior: Patient Behavior: Cooperative Speech Pattern: Appropriate Vitals/I&O/Wt Last Vital Signs Temp 97.9 F 02/09/24 14:00 Pulse 89 02/09/24 14:00 Resp 16 02/09/24 14:00 BP 129/84 02/09/24 14:00 Pulse Ox 95 02/09/24 14:00 O2 Del Method Room Air 02/09/24 06:00 Data NPU 02/05/24 10:53 02/05/24 10:53 A&P Assessment and plan (1) Suicidal ideation: (2) Major depressive disorder, recurrent: (3) Methamphetamine use disorder, moderate: Plan This is a 43-year-old female who had been seen in the neuropsychiatric unit once before secondary to depression and not being on medications who presents again with depression and family challenges as well as issues with her psychosocial circumstances including her residence open to restarting medications. Plan: 1. Restarted Zoloft 50 mg p.o. daily. Increase to 100 mg p.o. nightly. 2. Continue every 15 minute checks for safety. 3. Encourage individual, group and milieu therapies. 4. Encourage sober living treatment after discharge at the highest level of care to which she is willing to commit. 5. We will monitor for safety for herself in the community prior to discharge. Involuntary Hold Information 2 96 Hour Hold: 96 Hour Involuntary Admission: Yes Attestations NPU 2 Medical Necessity Statement*: Inpatient hospitalization is medically necessary and the clinically appropriate intervention at this time. We will initiate medications and make changes as indicated. Likely length of stay 1-3 days Coding Level of Care Code Acute Code for [facility] Fwd Diagnoses Suicidal ideation R45.851 Major depressive disorder, recurrent F33.9 Methamphetamine use disorder, moderate F15.20
[2024-02-09 19:57] VITALS: BP 136/87; PULSE 99; RESP 16; TEMP 36.8; O2SAT 98
[2024-02-09] MEDS: sertraline 50 mg Tablet 100 MG PO (21:04)
[2024-02-09] MEDS: hyDROXYzine 25 mg Capsule 50 MG PO (22:25)
[2024-02-10 06:00] VITALS: BP 126/74; PULSE 87; RESP 16; TEMP 36.9; O2SAT 95
[2024-02-10] MEDS: ibuprofen 600 mg Tablet PO (09:32)
[2024-02-10] MEDS: cephALEXin 500 mg Capsule PO ×3 (09:32→16:48)
[2024-02-10] MEDS: nicotine 21 mg Patch 1 PATCH TRANSDERMA (12:11)
--- NOTE | 2024-02-10 13:48 | W.PM.NPUDCS ---
Diagnoses at Discharge Discharge Diagnosis (1) Suicidal ideation: Status: Acute (2) Major depressive disorder, recurrent: Status: Acute (3) Methamphetamine use disorder, moderate: Status: Acute Reason for Visit Reason for Visit: [facility] Involuntary Hold Information 96 Hour Hold: 96 Hour Involuntary Admission: Yes Mental Status Exam MSE Comments: This is an obese white female in hospital scrubs with limited grooming but appropriate eye contact. No abnormal movements except for mild psychomotor retardation. Cooperative with exam in mild distress. Speech was slightly decreased rate and volume. Mood described as a little better, affect congruent. Thought process organized. Thought content: Patient denied suicidal or homicidal ideation, there were no delusions reported or noted, she denied any auditory or visual hallucinations. The patient appears to be experiencing emotional instability and anger following the of their father. They also expressed frustration and dissatisfaction with their previous psychiatric care. Attention and concentration were intact and memory appeared reliable but none were formally tested. She is alert and oriented x 3. Insight and judgment were fair impulse control limited. Affect: Affect Description: Appropriate and Anxious Behavior: Patient Behavior: Cooperative Speech Pattern: Appropriate Discharge Data Studies Completed and Pending: Completed Studies During Hospitalization Category Date Time Status XR chest 1V priya ble [id number] Stat Exams 02/05/24 10:42 Completed Radiology Impressions Chest X-Ray 02/05/24 10:42 IMPRESSION: No acute findings. Laboratory Results WBC 8.81 10^3/uL (3.2 9-11.43) 02/05/24 10:53 RBC 4.79 10^6/uL (3.8 5-5.65) 02/05/24 10:53 Hgb 10.70 g/dL (11.27 -16.99) L 02/05/24 10:53 Hct 35.5 % (36-47) L 02/05/24 10:53 MCV 74.1 fl (85-98) L 02/05/24 10:53 MCH 22.3 pg (27-33) L 02/05/24 10:53 MCHC 30.1 g/dL (30-55) 02/05/24 10:53 RDW 16.4 % (12.1-15.1 ) H 02/05/24 10:53 Plt Count 355 10^3/cmm (157 -399) 02/05/24 10:53 MPV 9.2 fL (7.4-10.4) 02/05/24 10:53 Neut % (Auto) 68.0 % 02/05/24 10:53 Lymph % (Auto) 20.2 % 02/05/24 10:53 Mcdowell % (Auto) 8.5 % 02/05/24 10:53 Eos % (Auto) 2.2 % 02/05/24 10:53 Baso % (Auto) 0.5 % 02/05/24 10:53 Neut # (Auto) 6.00 10^3/uL (1.8 -7.7) 02/05/24 10:53 Lymph # (Auto) 1.8 10^3/uL (0.8- 4.8) 02/05/24 10:53 Mcdowell # (Auto) 0.8 10^3/uL (0.2- 0.9) 02/05/24 10:53 Eos # (Auto) 0.2 10^3/uL (0.0- 0.8) 02/05/24 10:53 Baso # (Auto) 0.0 10^3/uL (0.0- 0.1) 02/05/24 10:53 Nucleated RBC % (a uto) 0 % 02/05/24 10:53 Nucleated RBCs # 0.0 /100WBC 02/05/24 10:53 Sodium 138 mmol/L (136-1 45) 02/05/24 10:53 Potassium 3.9 mmol/L (3.5-5 .1) 02/05/24 10:53 Chloride 103 mmol/L (98-10 7) 02/05/24 10:53 Carbon Dioxide 26 mmol/L (22-29) 02/05/24 10:53 Anion Gap 12.9 (5-19) 02/05/24 10:53 BUN 17 mg/dL (6-20) 02/05/24 10:53 Creatinine 0.7 mg/dL (0.5-0. 9) 02/05/24 10:53 GFR Calculation 90.9 mL/min (90-1 30) 02/05/24 10:53 Glucose 107 mg/dL (65-115 ) 02/05/24 10:53 Calculated Osmolal ity 288 mOsm/kg (285- 295) 02/05/24 10:53 Calcium 9.0 mg/dL (8.5-10 .5) 02/05/24 10:53 Total Bilirubin 0.2 mg/dL (0.15-1 .2) 02/05/24 10:53 AST 20 U/L (0-32) 02/05/24 10:53 ALT 11 U/L (0-33) 02/05/24 10:53 Alkaline Phosphata se 69 U/L (35-105) 02/05/24 10:53 Total Protein 7.2 g/dL (6.6-8.7 ) 02/05/24 10:53 Albumin 4.1 g/dL (3.5-5.2 ) 02/05/24 10:53 Globulin 3.1 g/dL (1.3-4.6 ) 02/05/24 10:53 HCG, Qual Negative (Negati ve) 02/05/24 11:59 Urine Color Yellow (Yellow) 02/05/24 11:59 Urine Appearance Clear (CLEAR) 02/05/24 11:59 Urine pH 6.5 (5-7) 02/05/24 11:59 Ur Specific Gravit y 1.015 (1.005-1.0 30) 02/05/24 11:59 Urine Protein Neg (Negative) 02/05/24 11:59 Urine Glucose (UA) Norm (Normal) 02/05/24 11:59 Urine Ketones Negative (Negati ve) 02/05/24 11:59 Urine Blood Neg (Negative) 02/05/24 11:59 Urine Nitrate Negative (Negati ve) 02/05/24 11:59 Urine Bilirubin Neg (Negative) 02/05/24 11:59 Urine Urobilinogen Norm mg/dL (Negat talia) 02/05/24 11:59 Ur Leukocyte Mignon ase Negative (Negati ve) 02/05/24 11:59 Salicylates < 0.3 mg/dL (3-10 ) L 02/05/24 10:53 Urine Opiates Scre en Negative ng/mL (N egative) 02/05/24 11:59 Acetaminophen < 5.0 ug/mL (10-3 0) L 02/05/24 10:53 Ur Barbiturates Sc reen Negative ng/mL (N egative) 02/05/24 11:59 Ur Phencyclidine S crn Negative ng/mL (N egative) 02/05/24 11:59 Ur Amphetamines Sc reen Positive ng/mL (N egative) H 02/05/24 11:59 U Benzodiazepines Scrn Negative ng/mL (N egative) 02/05/24 11:59 Urine Cocaine Scre en Negative ng/mL (N egative) 02/05/24 11:59 U Marijuana (THC) Screen Negative ng/mL (N egative) 02/05/24 11:59 Ethyl Alcohol < 10 mg/dL (0-10) 02/05/24 10:53 Vitals: Last Vital Signs Temp 98.4 F 02/10/24 06:00 Pulse 87 02/10/24 06:00 Resp 16 02/10/24 06:00 BP 126/74 02/10/24 06:00 Pulse Ox 95 02/10/24 06:00 O2 Del Method Room Air 02/09/24 19:57 Discharge Plan Discharge Condition: Stable Prescriptions: No Action No Known Home Medications Referrals: [facility] [Other] - 4-7 days (Open access walk in on Wednesday through Wednesday 8am to 4pm) Patient Instructions: Opioid Safety Discharge Attestations NPU Time Spent in Discharge Care*: less than 30 min Specific Discharge Activities: Specific discharge activities: educating patient, discussing with rn case management/social workers/dc planners, documenting/other paperwork and evaluating patient/reviewing data Coding Level of Care Code Acute Code for [facility] Fwd Diagnoses Suicidal ideation R45.851 Major depressive disorder, recurrent F33.9 Methamphetamine use disorder, moderate F15.20
[2024-02-10 14:00] VITALS: BP 129/90; PULSE 97; RESP 16; TEMP 36.8; O2SAT 97
[2024-02-10 16:26] VITALS: BP 129/90; PULSE 97; RESP 16; TEMP 36.8; O2SAT 97
== END 2024-02-10 16:48 | disposition home or self-care (01) | DRG 885 ==
LOC: ER 15:29 → NP 19:37
PROVIDERS: Admitting Provider Psychiatry & Neurology Psychiatry; Emergency Provider Emergency Medicine; Visit Provider Psychiatry & Neurology Psychiatry
DX: F33.1 Major depressive disorder, recurrent, moderate (principal); R45.851 Suicidal ideations; F17.210 Nicotine dependence, cigarettes, uncomplicated; F15.10 Other stimulant abuse, uncomplicated
CPT/HCPCS: 71045; 80053; 80306; 80307; 81003; 81025; 85025; 97150; 97165; 99285